=== PATIENT | male | born 1960 | race Caucasian/White ===

== ENCOUNTER 2019-11-13 10:39 | Emergency (ER) | payer OTHER ==
[~2019-11-13] VITALS: Ht 170.2 cm; Wt 90.7 kg
[2019-11-13] MEDS ORDERED: ALEVE220 M1 (10:55)
[2019-11-13] MEDS ORDERED: ASPIR 8181 MG (10:55)
== END 2019-11-13 15:23 | disposition home or self-care (01) ==
LOC: ER 10:39
DX: L03.115 Cellulitis of right lower limb (principal); I16.1 Hypertensive emergency; I10 Essential (primary) hypertension